=== PATIENT | male | born 1970 | race Caucasian/White ===

== ENCOUNTER 2019-03-31 21:18 | Emergency (ER) | payer BC ==
[2019-04-01 00:45] VITALS: BP 153/105
--- NOTE | 2019-04-01 00:53 | ER Document Report ---
HPI - HPI Time Seen by Provider: 04/01/19 00:00 Context: Patient is a 48-year-old male that comes to the emergency department for chief complaint of a bug in his right ear. He states it was a flying insect that flew into his ear while he was sitting on a bleacher. He states the flapping and l oud noise was driving him crazy so he did have his for vegetable oil in his ear and he thinks it killed it because he has not felt it moving or flapping since that time. This was about 2 hours prior to my evaluation. Patient denies bleeding from the ear, current pain in the ear, nausea or vomiting, headache, or any other complaints. Past Medical History - General Information source: Patient - Social History Smoking Status: Never Smoker Frequency of alcohol use: None Drug Abuse: None Lives with: Family Family History: Reviewed & Not Pertinent - Immunizations Hx Diphtheria, Pertussis, Tetanus Vaccination: Yes Vertical Provider Document - CONSTITUTIONAL General Appearance: WD/WN, No Apparent Distress - HEENT HEENT: Atraumatic, Normocephalic, PERRLA. negative: Conjuctival Injection, Dental Injury, Normal ENT Exam - Left ear is normal. Right ear shows what appears to be a small amount of oil in the ear canal and there does appear to be a winged insect curled up close to the tympanic membrane. There is no bleeding, tragus is nontender, unremarkable otherwise., Pharyngeal Exudate, Pharyngeal Tenderness, Pharyngeal Erythema, Tympanic Membrane Red, Tympanic Membrane Bulging - NECK Neck: Normal Inspection - RESPIRATORY Respiratory: Breath Sounds Normal, No Respiratory Distress - CARDIOVASCULAR Cardiovascular: Regular Rate, Regular Rhythm - GI/ABDOMEN Gastrointestinal: Abdomen Soft, Abdomen Non-Tender - BACK Back: Normal Inspection - MUSCULOSKELETAL/EXTREMETIES Musculoskeletal/Extremeties: MAEW, FROM, Non-Tender - NEURO Level of Consciousness: Awake, Alert, Appropriate Motor/Sensory: No Motor Deficit, No Sensory Deficit - DERM Integumentary: Warm, No Rash Course - Re-evaluation Re-evalutation: Insect removed from right ear without complication. Discussed recommendations, follow-up, and return precautions. Patient states understanding and agreement. - Vital Signs Vital signs: Temp Pulse Resp BP Pulse Ox 98.2 F 87 16 164/120 H 97 03/31/19 21:53 03/31/19 21:53 03/31/19 21:53 03/31/19 21:53 03/31/19 21:53 Procedures - Additional Procedures right ear insect removal Additional Procedures: Other - Right ear was irrigated with warm water, this did bring oil out and the winged insect did approach the middle canal, after this was easily grasped with alligator forceps. It came out in 3 pieces. There were 2 tiny pieces that looked like insect particles retained near the eardrum, ear was irrigated additionally but these would not move. Eardrum is normal. No bleeding. No complications. Discharge - Discharge Clinical Impression: Ear foreign body Qualifiers: Encounter type: initial encounter Laterality: right Qualified Code(s): T16.1XXA - Foreign body in right ear, initial encounter Condition: Stable Disposition: HOME, SELF-CARE Additional Instructions: The insect has been removed from the right ear. There are tiny fragments of the insect still in the ear on the sides, these will come out with time in the shower/bath. You can put drying agent such as hydrogen peroxide or isopropyl alcohol in your ear (ex: several drops a 2 times a day for the next 2 days). Follow-up with primary care. Return for any concerning symptoms including developing swelling, discolored discharge, severe pain, or any other concerning symptoms. Forms: Elevated Blood Pressure
== END 2019-04-01 00:55 | disposition home or self-care (01) ==
LOC: ER 21:18
DX: T16.1XXA Foreign body in right ear, initial encounter (principal); X58.XXXA Exposure to other specified factors, initial encounter
CPT/HCPCS: 99282